=== PATIENT | female | born 2000 | race Two or more races ===

== ENCOUNTER 2025-01-09 03:16 | Emergency (ER) | payer OTHER ==
[~2025-01-09] VITALS: Ht 162.6 cm; Wt 54.4 kg
[2025-01-09 04:17] LABS: APPEARANCE,URINE CLOUDY (CLEAR); BLOOD, URINE 3+ Ery/uL (NEGATIVE); LEUKOCYTE ESTERASE ,URINE 3+ (NEGATIVE); NITRITE, URINE POSITIVE (NEGATIVE); UGLUCOSE 1+ mg/dL (NEGATIVE)
[2025-01-09 04:18] LABS: PREGNANCY TEST URINE QUAL NEGATIVE (NEGATIVE)
[2025-01-09 04:21] LABS: ADD URINE CULTURE YES; CALCIUM OXALATE CRYSTALS,UR Few /HPF (None Seen)
[2025-01-09 04:22] LABS: SQUAMOUS EPITHELIAL CELL,UR Few /HPF (None Seen)
[2025-01-09] MEDS ORDERED: NITR100C6 PO (04:24)
[2025-01-09] MEDS ORDERED: NITROFURANTOIN/MONOHYDRATE MACROCRYSTALS 100 MG CAPSULE ONE (04:25)
[2025-01-09] MEDS ORDERED: ONDA4TAB5 PO (04:27)
[2025-01-09] MEDS: NITROFURANTOIN/MONOHYDRATE MACROCRYSTALS 100 MG CAPSULE PO ONE (04:28)
[2025-01-09 04:34] VITALS: BP 121/70; TEMP 98.2; O2SAT 98
== END 2025-01-09 04:34 | disposition home or self-care (01) ==
LOC: ER 03:36
DX: N39.0 Urinary tract infection, site not specified (principal); Z60.2 Problems related to living alone
CPT/HCPCS: 81001; 84703-TC; 87086-TC; 87186-TC